=== PATIENT | female | born 1945 | race African-American/Black ===

== ENCOUNTER → 2023-12-16 09:07 | Outpatient (REF) | payer MEDICARE, BC, OTHER, SELFPAY ==
[2023-12-16 12:23] LABS: % Basophils 0.9 % (0-2); % Eosinophils 2.1 % (0-6); % Immature Granulocytes 0.2 % (0-0.5); % Lymphocytes 47.3 % (20.5-51.1); % Monocytes 9.4 % (1.7-9.3); % Neutrophils 40.1 % (42.2-75.2); Absolute Eosinophils 0.1 10^3/uL (0-0.7); Absolute Monocytes 0.4 10^3/uL (0.1-0.6); Absolute Neutrophils 1.7 10^3/uL (1.4-6.5); Hematocrit 32.7 % (37.0-47.0); Hemoglobin 10.4 g/dL (12.0-16.0); Mean Corp Hgb Conc. 31.8 g/dL (33.0-37.0); Mean Corpuscular Hgb 27.2 pg (27.0-31.0); Mean Corpuscular Volume 85.4 fL (81.0-99.0); Mean Platelet Volume 12.5 fL (7.4-10.4); Nucleated Red Blood Cells % 0 %; Platelet Count 130 10^3/uL (130-400); Red Blood Cell Count 3.83 10^6/uL (4.20-5.40); Red Cell Dist. Width 14.7 % (11.5-14.5); White Blood Cell Count 4.3 10^3/uL (4.8-10.8)
[2023-12-16 12:37] LABS: ALT (SGPT) 27 U/L (0-35); AST (SGOT) 31 U/L (14-36); Albumin 3.9 g/dl (3.5-5.0); Alkaline Phosphatase 58 U/L (38-126); Blood Urea Nitrogen 22 mg/dl (7-17); Calcium 9.4 mg/dl (8.4-10.2); Carbon Dioxide 28 mmol/L (22-30); Chloride 107 mmol/L (98-107); Glucose 130 mg/dl (70-99); HDL Cholesterol 97 mg/dl; LDL Cholesterol, Calculated 101 mg/dl; Potassium 3.4 mmol/L (3.5-5.1); Sodium 142 mmol/L (135-145); Total Bilirubin 0.6 mg/dl (0.2-1.3); Total Cholesterol 206 mg/dl (50-199); Total Protein 6.5 g/dl (6.3-8.2); Triglyceride 40 mg/dl (10-149); Very Low Density Lipoprotein 8 mg/dl (0-30); eGFR > 60.00
[2023-12-16 12:51] LABS: Microalbumin, Random Urine 1.5 mg/dl (0.6-1.7); Microalbumin/creatinine Ratio 8.4 mg/g
[2023-12-16 14:27] LABS: Glycohemoglobin (HgbA1c) 7.3 % (4.0-5.6)
== END ==
LOC: HWLAB 09:07
PROVIDERS: ATTENDING PHYSICIAN Family Medicine
DX: E11.65 Type 2 diabetes mellitus with hyperglycemia (principal); I10 Essential (primary) hypertension; E78.00 Pure hypercholesterolemia, unspecified; I69.959 Hemiplegia and hemiparesis following unspecified cerebrovascular disease affecting unspecified side; N28.9 Disorder of kidney and ureter, unspecified; D64.9 Anemia, unspecified; Z00.00 Encounter for general adult medical examination without abnormal findings
CPT/HCPCS: 36415; 80053; 80061; 82043; 82570; 83036; 85025

== ENCOUNTER → 2024-05-04 13:27 | Outpatient (REF) | payer MEDICARE, OTHER, BC, SELFPAY ==
[2024-05-04 16:14] LABS: % Basophils 0.9 % (0-2); % Eosinophils 4.1 % (0-6); % Immature Granulocytes 0.3 % (0-0.5); % Lymphocytes 43.2 % (20.5-51.1); % Monocytes 9.3 % (1.7-9.3); % Neutrophils 42.2 % (42.2-75.2); Absolute Eosinophils 0.1 10^3/uL (0-0.7); Absolute Lymphocytes 1.5 10^3/uL (1.2-3.4); Absolute Monocytes 0.3 10^3/uL (0.1-0.6); Absolute Neutrophils 1.5 10^3/uL (1.4-6.5); Hematocrit 41.2 % (37.0-47.0); Hemoglobin 13.4 g/dL (12.0-16.0); Mean Corp Hgb Conc. 32.5 g/dL (33.0-37.0); Mean Corpuscular Hgb 25.7 pg (27.0-31.0); Mean Corpuscular Volume 78.9 fL (81.0-99.0); Nucleated Red Blood Cells % 0 %; Platelet Count 121 10^3/uL (130-400); Red Blood Cell Count 5.22 10^6/uL (4.20-5.40); White Blood Cell Count 3.5 10^3/uL (4.8-10.8)
[2024-05-04 17:09] LABS: ALT (SGPT) 25 U/L (0-35); AST (SGOT) 28 U/L (14-36); Albumin 4.6 g/dl (3.5-5.0); Alkaline Phosphatase 70 U/L (38-126); Blood Urea Nitrogen 18 mg/dl (7-17); Carbon Dioxide 30 mmol/L (22-30); Chloride 98 mmol/L (98-107); Glucose 163 mg/dl (70-99); Iron 99 ug/dl (37-170); Potassium 3.7 mmol/L (3.5-5.1); Sodium 141 mmol/L (135-145); Total Bilirubin 0.6 mg/dl (0.2-1.3); Total Cholesterol 242 mg/dl (50-199); Total Protein 7.4 g/dl (6.3-8.2); Triglyceride 71 mg/dl (10-149); Very Low Density Lipoprotein 14 mg/dl (0-30); eGFR > 60.00
[2024-05-04 17:19] LABS: HDL Cholesterol 121 mg/dl; LDL Cholesterol, Calculated 107 mg/dl; Percent Saturation 38 % (20-50); Total Iron Binding Capacity 258 ug/dl (265-497)
[2024-05-04 17:22] LABS: Microalbumin, Random Urine 1.5 mg/dl (0.6-1.7); Microalbumin/creatinine Ratio 12.9 mg/g
[2024-05-05 12:31] LABS: Glycohemoglobin (HgbA1c) 9.2 % (4.0-5.6)
== END ==
LOC: HWLAB 13:27
PROVIDERS: ATTENDING PHYSICIAN Family Medicine
DX: E78.00 Pure hypercholesterolemia, unspecified (principal); E11.65 Type 2 diabetes mellitus with hyperglycemia; D64.9 Anemia, unspecified; R63.4 Abnormal weight loss
CPT/HCPCS: 36415; 80053; 80061; 82043; 82570; 82728; 83036; 83540; 83550; 85025

== ENCOUNTER → 2024-05-10 11:03 | Outpatient (REF) | payer MEDICARE, BC, SELFPAY | LOC: HWRAD 11:03 | PROVIDERS: ATTENDING PHYSICIAN Family Medicine | DX: R10.84 Generalized abdominal pain (principal); R63.4 Abnormal weight loss | CPT/HCPCS: 74177; Q9967 ==

== ENCOUNTER 2024-07-03 18:23 | Emergency (ER) | payer MEDICARE, BC, SELFPAY ==
[2024-07-03 18:26] VITALS: BP 144/68
[2024-07-03 22:09] VITALS: BP 153/71
--- NOTE | 2024-07-03 23:38 | ED.MUSCINJ ---
HPI-Injury
General
Chief Complaint: Fall
Source: patient and family
Exam Limitations: none
Time Seen by Provider: 07/03/24 19:38
Nursing documentation reviewed up to this point in time: agreed with
History of Present Illness-Injury
Is this injury a work related problem?: No
Is pt an associate of [facility]/[place]?: No
Initial Injury comments:
Patients sister states patient fell down approx 3 steps at home tonight. Unwitnessed, however sister heard the fall. No LOC. Patient complains of pain to her right thigh and right shoulder.
Past History
Past History
ED Past Medical History: CVA, HTN and Hypercholesterolemia; Negative NIDDM
Social History
Tobacco: Non-smoker
Living: with family
Family History
Family History: Negative Diabetes, Hypertension or CAD
Review of Systems
Review of Systems
Allergies reviewed?: Yes
All Other Systems: ROS reviewed and negative except as documented in HPI and ROS
Constitutional: Reports no symptoms
EENT: Reports no symptoms
Respiratory: Reports no symptoms
Cardiac: Reports no symptoms
ABD/GI: Reports no symptoms
Musculoskeletal: Reports joint pain (Pain to right thigh and right shoulder)
Skin: Reports no symptoms
Neurological: Reports no symptoms
Psychiatric: Reports no symptoms
Musculoskeletal Injury Exam
Musculoskeletal Injury Exam
Right Thigh:
Pain with Movement?: Moderate
Tender to palpation?: Moderate
Soft tissue swelling?: None
External deformity and angulation?: None
Joint effusion?: None
Contusion?: Moderate
Hematoma-local bleeding into tissue?: None
Strain- Sprain- Tear (Connective tissue injury)?: Moderate
Crepitus with movement?: No
Joint instability?: No
Malalignment/deformity?: No
Range of motion: Full
Distal skin color and temperature: normal-warm & good color
Capillary Refill: normal
Normal distal neurovascular exam?: Yes
Right Shoulder:
Pain with Movement?: Moderate
Tender to palpation?: Moderate
Soft tissue swelling?: None
External deformity and angulation?: None
Joint effusion?: None
Contusion?: Moderate
Hematoma-local bleeding into tissue?: None
Strain- Sprain- Tear (Connective tissue injury)?: None
Crepitus with movement?: No
Joint instability?: No
Malalignment/deformity?: No
Range of motion: Limited
Distal skin color and temperature: normal-warm & good color
Capillary Refill: normal
Normal distal neurovascular exam?: Yes
Phy Exam
General Physical Exam
General Presentation: well appearing and no apparent distress
General age: appears stated age
General Skin: warm and dry
General Habitus: normal
General Mental: alert
Neurological Exam
Neurological Exam: alert, oriented x3 and CN II-XII intact
Musculoskeletal Exam
Musculoskeletal Exam: neuro vasc intact
Skin Exam
Skin Exam: normal color, warm/dry and no rash
Psychiatric Exam
Psychiatric Exam: normal mood/affect
Injury Course
Orders/Labs/Results
Orders:
Orders
07/03/24 18:28
CT Cervical Spine W/o Iv Contr Urgent
Comment:
Reason For Exam: fall
CT Head W/o Iv Contrast Urgent
Comment:
Reason For Exam: fall
07/03/24 20:13
Femur, Right 2 View [CR Femur - Right Min 2 Vw] Urgent
Comment:
Reason For Exam: fall
Hip, Right 2-3 Views [CR Hip - RT w/wo Pel 2-3 Vw*] Urgent
Comment:
Reason For Exam: fall
Include a pelvis x-ray?: Yes
Shoulder, Right, Trauma [CR Shoulder, Trauma - Right] Urgent
Comment:
Reason For Exam: fall
*Radiology
Radiology exam reviewed: radiology read reviewed
*Pulse Oximetry
Patient hypoxic: no
*Critical Care Note
Total Time (30-74mins, 75-104mins- exclusive of procedures): Not Applicable
ED Attending Note
-
Portions of this chart may have been created with voice recognition software.� Occasional wrong word or��sound alike� substitutions may have occurred due to the inherent limitations of voice recognition software.
Discharge Plan
Departure
Patient Disposition: Home (Routine Discharge)
Date of Disposition: 07/03/24
Time of Disposition: 21:57
Patient with high blood pressure during this ER visit?: No
Condition: Good
Covid-19: Not Applicable
Discharge Problem:
Contusion of right shoulder, Contusion of left leg
Instructions: Contusion (DC), Preventing falls in adults, Using Cold for Pain
Prescriptions:
No Action
aspirin-dipyridamole 1 CAPSULE capsule, ER multiphase 12 hr
1 cap PO BID
carvedilol 6.25 MG tablet
12.5 mg PO BID
famotidine 10 MG tablet
20 mg PO BID
amlodipine 5 MG tablet
5 mg PO DAILY
atorvastatin 80 mg Tablet
80 mg PO DAILY
glipizide 5 mg Tablet Extended Release 24hr
5 mg PO DAILY
hydrochlorothiazide 25 mg Tablet
25 mg PO DAILY
Referrals:
Genet Laurent, DO [Family Provider] - Follow up in 2-3 days
Interventions
Interventions:
*Risk Screen - Suicide Last Done: 07/03/24 18:26
*General Assessment Last Done: 07/03/24 18:26
*Neglect/Abuse Screening Last Done: 07/03/24 18:26
ED- Fall Risk Assessment Last Done: 07/03/24 19:46
*Nursing Disposition Last Done: 07/03/24 22:11
ED-Musculoskeletal Assessment Last Done: 07/03/24 19:46
ED- Neurological Assessment Last Done: 07/03/24 19:46
ED-Skin Assessment Last Done: 07/03/24 19:46
Discharge Date and Time
Discharge Date/Time: 07/03/24 22:11
Print Language: KHMER
== END 2024-07-03 22:11 | disposition home or self-care (01) ==
LOC: EMR 18:23
PROVIDERS: EMERGENCY PHYSICIAN Student in an Organized Health Care Education/Training Program; FAMILY PHYSICIAN Family Medicine
DX: S80.12XA Contusion of left lower leg, initial encounter (principal); S40.011A Contusion of right shoulder, initial encounter; S09.90XA Unspecified injury of head, initial encounter; W10.9XXA Fall (on) (from) unspecified stairs and steps, initial encounter; I10 Essential (primary) hypertension; E78.00 Pure hypercholesterolemia, unspecified; I69.351 Hemiplegia and hemiparesis following cerebral infarction affecting right dominant side; I69.320 Aphasia following cerebral infarction; Z79.82 Long term (current) use of aspirin
CPT/HCPCS: 99284; 70450; 72125; 73030; 73502; 73552

== ENCOUNTER 2024-07-12 02:48 | Observation (INO) | payer MEDICARE, BC, SELFPAY ==
[2024-07-11 19:59] VITALS: BP 114/52
[2024-07-11 20:31] LABS: % Basophils 0.4 % (0-2); % Eosinophils 0.4 % (0-6); % Immature Granulocytes 0.4 % (0-0.5); % Lymphocytes 17.7 % (20.5-51.1); % Monocytes 10.7 % (1.7-9.3); % Neutrophils 70.4 % (42.2-75.2); Absolute Lymphocytes 0.9 10^3/uL (1.2-3.4); Absolute Monocytes 0.6 10^3/uL (0.1-0.6); Absolute Neutrophils 3.7 10^3/uL (1.4-6.5); Hematocrit 37.4 % (37.0-47.0); Hemoglobin 12.1 g/dL (12.0-16.0); Mean Corp Hgb Conc. 32.4 g/dL (33.0-37.0); Mean Corpuscular Hgb 26.8 pg (27.0-31.0); Mean Corpuscular Volume 82.9 fL (81.0-99.0); Mean Platelet Volume 11.3 fL (7.4-10.4); Nucleated Red Blood Cells % 0 %; Platelet Count 108 10^3/uL (130-400); Red Blood Cell Count 4.51 10^6/uL (4.20-5.40); Red Cell Dist. Width 16.4 % (11.5-14.5); White Blood Cell Count 5.3 10^3/uL (4.8-10.8)
[2024-07-11 20:38] LABS: ALT (SGPT) 31 U/L (0-35); AST (SGOT) 39 U/L (14-36); Albumin 4.4 g/dl (3.5-5.0); Alkaline Phosphatase 51 U/L (38-126); Blood Urea Nitrogen 18 mg/dl (7-17); Calcium 9.1 mg/dl (8.4-10.2); Carbon Dioxide 25 mmol/L (22-30); Chloride 100 mmol/L (98-107); Glucose 237 mg/dl (70-99); Potassium 4.2 mmol/L (3.5-5.1); Sodium 135 mmol/L (135-145); Total Bilirubin 0.6 mg/dl (0.2-1.3); Total Protein 7.2 g/dl (6.3-8.2); eGFR 45.76
[2024-07-11 22:53] VITALS: BP 113/63
[2024-07-11 22:55] VITALS: BMI 27.6
[2024-07-11 23:53] LABS: COVID-19 Antigen Positive (Negative)
[2024-07-12] VITALS (12 sets, daily range): BP systolic 105–162; BP diastolic 45–78; BMI 27.2
--- NOTE | 2024-07-12 00:08 | ED.GENMED ---
History of Present Illness
General
Chief Complaint: Weakness
Source: patient
Exam Limitations: none
Time Seen by Provider: 07/11/24 23:01
History of Present Illness
History of Present Illness:
79-year-old female presents for increasing weakness and discomfort to the right leg. She was here 9 days ago after a fall thought to have a contusion to the right leg typically she is ambulatory on her own however since the fall she has had
difficulty walking. She was unable to support her weight at all today. She lives with her family who accompanies her today. 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 She is a diabetic
Past History
Past History
ED Past Medical History: CVA, HTN and Hypercholesterolemia; Negative NIDDM
Social History
Tobacco: Non-smoker
Living: with family
Family History
Family History: Negative Diabetes, Hypertension or CAD
Phy Exam
Physical Exam
Physical Exam:
General: Well-appearing female no acute respiratory distress
HEENT: Normocephalic atraumatic
Heart: RRR, no murmurs
LUngs; CTA bilaterally
Ext: no cyanosis or edema
Skin: Warm, rash
Musculoskeletal exam: Increased pain response with internal/external rotation of the right hip. No deformity
Course
Orders/Labs/Results
Orders:
Orders
07/11/24 20:10
CMP [Comprehensive Metabolic Panel] Urgent
Complete Blood Count/With Diff Urgent
07/11/24 23:23
Urinalysis Reflex To Culture Urgent
CR Chest - 2 Views Urgent
Comment:
Reason For Exam: cough
07/11/24 23:41
COVID-19 Antigen Urgent
Source: Nasal Swab
Influenza A+B Rapid Molecular Urgent
ANTHONY Source: Nasal Swab
Specimen Description:
07/12/24 00:03
CT Pelvis W/o Iv Contrast Urgent
Reason For Exam: right hip pain, recent xrays
07/12/24 01:18
Acetaminophen [Tylenol] 650 mg PO NOW STA
Abnormal Lab Results
07/11/24 07/11/24
20:10 23:41
MCH 26.8 L pg
(27.0-31.0)
MCHC 32.4 L g/dL
(33.0-37.0)
RDW 16.4 H %
(11.5-14.5)
Plt Count 108 L 10^3/uL
(130-400)
MPV 11.3 H fL
(7.4-10.4)
Absolute Lymphs (auto) 0.9 L 10^3/uL
(1.2-3.4)
Lymphocytes % 17.7 L %
(20.5-51.1)
Monocytes % 10.7 H %
(1.7-9.3)
BUN 18 H mg/dl
(7-17)
Creatinine 1.2 H mg/dL
(0.6-1.0)
Glucose 237 H mg/dl
(70-99)
AST 39 H U/L
(14-36)
SARS-CoV-2 Antigen Positive A
(Negative)
07/11/24 20:10
07/11/24 20:10
Vital Signs
Initial and Last Documented VS:
Initial Vital Signs
Pulse Resp BP Pulse Ox
71 16 114/52 98
07/11/24 19:59 07/11/24 19:59 07/11/24 19:59 07/11/24 19:59
Last Documented Vital Signs
Pulse Resp BP Pulse Ox
71 16 113/63 96
07/11/24 19:59 07/11/24 19:59 07/11/24 22:53 07/12/24 00:30
MDM/Problems Addressed
Differential Diagnosis Includes:
Weakness increased pain to right leg. Had a fall 9 days ago x-rays of the right hip and pelvis and femur were negative. Family also notes onset of a cough recently. She is incontinent. Unable to walk due to her weakness. There is no respiratory
distress noted by family and there is no distress noted on my exam
Will check CT of pelvis to evaluate for possible occult fracture. Given the cough will test for COVID and flu and do a chest x-ray. Check labs.
*Critical Care Note
Total Time (30-74mins, 75-104mins- exclusive of procedures): Not Applicable
Update Note
Update Note:
Patient reevaluated. CT of pelvis negative. Patient tested positive for COVID. Chest x-ray clear not hypoxic. Patient has declined since last visit now unable to ambulate on her own normal with help of family. Here with generalized weakness
likely secondary to COVID infection in the setting of her recent fall. Not suitable for discharge home at this time.
ED Attending Note
-
Portions of this chart may have been created with voice recognition software.� Occasional wrong word or��sound alike� substitutions may have occurred due to the inherent limitations of voice recognition software.
Discharge Plan
Departure
Patient Disposition: Admit
Date of Disposition: 07/12/24
Time of Disposition: 01:21
Admit to: Telemetry
Presentation/result/management discussed w/ accepting MD/DO: Hospitalist
Discharge Problem:
Weakness, COVID-19
Prescriptions:
No Action
aspirin-dipyridamole 1 CAPSULE capsule, ER multiphase 12 hr
1 cap PO BID
carvedilol 6.25 MG tablet
12.5 mg PO BID
famotidine 10 MG tablet
20 mg PO BID
amlodipine 5 MG tablet
5 mg PO DAILY
atorvastatin 80 mg Tablet
80 mg PO DAILY
glipizide 5 mg Tablet Extended Release 24hr
5 mg PO DAILY
hydrochlorothiazide 25 mg Tablet
25 mg PO DAILY
Referrals:
Genet Laurent, DO [Family Provider] -
Interventions
Interventions:
*Risk Screen - Suicide Last Done: 07/11/24 22:55
*General Assessment Last Done: 07/11/24 19:59
*Neglect/Abuse Screening Last Done: 07/11/24 22:55
ED- Fall Risk Assessment Last Done: 07/11/24 22:55
*ED COVID-19 Vaccine History Last Done: 07/11/24 19:59
ED- Cardiac Assessment Last Done: 07/11/24 22:55
ED- Neurological Assessment Last Done: 07/11/24 22:55
ED- Pulmonary Assessment Last Done: 07/11/24 22:55
Discharge Date and Time
Print Language: ARABIC
[2024-07-12] MEDS: TYLENOL 650 MG PO ×3 (01:49→22:51)
--- NOTE | 2024-07-12 01:52 | HPS.HSE ---
Family Physician
-
Family Physician: Genet Laurent
Chief Complaint
-
Weakness
History of Present Illness
This is a-year-old with past medical history of CVA with residual right-sided hemiplegia and aphasia, khe-zcrhrri-ibrfanntu diabetes, hypertension, hyperlipidemia and recent falls who presents to the emergency department with weakness and discomfort
to the right leg.
Patient had a fall and was seen the emergency department 9 days ago and found to have a contusion to the right leg. She is was able to ambulate on her home however since the fall she has had difficulty walking. She also has chronic weakness on the
right leg. She reportedly had a cough yesterday that was nonproductive. She did not have any fevers or chills. Did not have any nausea or vomiting. Today she did have 1 episode of watery diarrhea. There was no melena or hematochezia. Denies
any medication changes. Family found her very weak getting up today. She was able to ambulate once she got up. Then she complained of pain radiating down from the right thigh.
In the emergency department she was afebrile, blood pressure was 113/63 with a pulse rate of 71. CBC was unremarkable. She had a CT of the hip which shows no evidence of fracture, there was chronic osteoarthritic changes. Electrolytes were
stable. Creatinine is slightly elevated at 1.2 from a baseline of around 0.8. Glucose was 237.
She has a positive COVID test
Medical History
Past Medical History
Past Medical History: Reports CVA, HTN and Hypercholesterolemia
Past Surgical History: Reports Other
Social History
Tobacco: Non-smoker
Alcohol: None
Drug: None
Living: With Family
Employment: Retired
Family History
Family History: Not pertinent
Allergies / Home Medications
Allergies reflects when Allergies were last updated in [facility].
Home Medications with original date entered in [facility]
Allergy/Medication List:
Allergies
Allergy/AdvReac Type Severity Reaction Status Date / Time
No Known Allergies Allergy Verified 07/11/24 20:06
Home Medications
amlodipine 5 mg tablet 5 mg PO DAILY 11/13/15
aspirin 25 mg-dipyridamole 200 mg capsule,ext.release 12 hr multiphase 1 cap PO BID 11/13/15
carvedilol 6.25 mg tablet 12.5 mg PO BID 11/13/15
famotidine 10 mg tablet 20 mg PO BID 11/13/15
atorvastatin 80 mg tablet 80 mg PO DAILY 12/26/22
glipizide 5 mg tablet, extended release 24 hr 5 mg PO DAILY 12/26/22
hydrochlorothiazide 25 mg tablet 25 mg PO DAILY 12/26/22
repaglinide 1mg tablet 1mg po with meals
Review of Systems
-
History Source: Patient and Family
Constitutional: Reports No Symptoms
EENT: Reports No Symptoms
Respiratory: Reports Cough
Cardiac: Reports No Symptoms
Abdomen/GI: Reports Diarrhea
: Reports No Symptoms
Musculoskeletal: Reports No Symptoms
Skin: Reports No Symptoms
Neurological: Reports Weakness
Endocrine: Reports No Symptoms
Hematologic/Lymphatic: Reports No Symptoms
Psych: Reports No Symptoms
Physical Exam
Vital Signs
Vital Signs
Pulse Resp BP Pulse Ox
71 16 113/63 96
07/11/24 19:59 07/11/24 19:59 07/11/24 22:53 07/12/24 00:30
Physical Exam
General: Well Developed, Well Nourished and No Apparent Distress
HEENT: NormoCephalic, Anicteric, Moist mucous membranes and Atraumatic
Respiratory: Clear
Cardiac: S1/S2 and Regular Rhythm
Breast: Deferred by me
GI: Soft, Non Tender, Non Distended and Normal Bowel Sounds
Rectal: Deferred by Provider
Genito-urinary: Deferred by me
Musculoskeletal: No Clubbing, No Cyanosis and No Edema
Skin: Warm
Neuro: AO x 3, Cranial Nerves Intact and Other (right upper ext spastic paresis. right lower extremity weakness. Both chronic)
Hematologic/Lymphatic: No Lymphadenopathy
Psych: Calm
Laboratory Results
-
07/11/24 20:10
07/11/24 20:10
Laboratory Results
Total Bilirubin 0.6 mg/dl (0.2-1.3) 07/11/24 20:10
AST 39 U/L (14-36) H 07/11/24 20:10
ALT 31 U/L (0-35) 07/11/24 20:10
Alkaline Phosphatase 51 U/L (38-126) 07/11/24 20:10
Data Reviewed
-
Diagnostic Radiology: Image Personally Visualized and interpreted
CT Scan: Report Reviewed by me
Lab Data: Labs Reviewed by me
Old Records: Reviewed
Impression/Plan
-
IMPRESSION:
79-year-old with tah-uzevtju-snevqmwmk diabetes, hypertension, hyperlipidemia and a prior CVA with residual right-sided hemiparesis who ambulates independently up until 9 days ago when she had a fall with a contusion on the right hip and now has
been having more difficulty ambulating over the last 2 to 3 days. They report that she was so weak that she could not get up by herself today but once she was up she was able to ambulate. She had a cough and a diarrhea and was positive for COVID
today. She is not hypoxic. She is hemodynamically stable but has slight rising creatinine. UA has not been obtained.
PLAN:
1. Weakness - Likely secondary to dehydration and possibly covid and exacerbating ambulatory difficulty from right hemiparesis and contusion. Pelvic CT negative for occult fracture
- admit to med/surg
- check u/a, tsh
- IV fluids
- pain control
- PT eval
2. COVID 19 - episode of diarrhea and cough. Well appearing. No hypoxia
- no specific tx indicated, monitor for now
3. DM II
- only on repaglinide 1mg tid w/ meals
- sliding scale insulin
4. CVA - stabl e
- continue aggrenox, statin
- continue carvedilol and amlodipine
DVT PPX - enoxaparin
Code status - full code
[2024-07-12] MEDS: NSS 1000 IV (05:17)
[2024-07-12 07:50] LABS: Urine Albumin Trace (Neg - Trace); Urine Bilirubin Negative (Negative); Urine Character Clear (Clear); Urine Color Yellow; Urine Glucose Negative (Negative); Urine Ketone Negative (Negative); Urine Leukocyte 2+ (Negative); Urine Nitrite Negative (Negative); Urine Occult Blood Negative (Negative); Urine Urobilinogen Negative (Neg - 1+)
[2024-07-12 07:56] LABS: Blood Urea Nitrogen 17 mg/dl (7-17); Calcium 8.6 mg/dl (8.4-10.2); Carbon Dioxide 25 mmol/L (22-30); Chloride 103 mmol/L (98-107); Creatine Phosphokinase 66 U/L (30-135); Estimated Creatinine Clearance 47 ml/min; Glucose 136 mg/dl (70-99); Potassium 3.2 mmol/L (3.5-5.1); Sodium 136 mmol/L (135-145); eGFR > 60.00
[2024-07-12 08:33] LABS: Urine Squamous Cell >30 /LPF (Few)
[2024-07-12 08:43] LABS: Urine Amorphous Seen
[2024-07-12 08:44] LABS: Urine Bacteria Few (Negative); Urine Red Blood Cell 0-2 /HPF (0-2); Urine White Cell 21-25 /HPF (0-5)
[2024-07-12 09:01] LABS: Glucose - Point of Care 130 mg/dl (70-99)
[2024-07-12] MEDS: PRANDIN 1 MG PO ×3 (09:28→18:22)
[2024-07-12] MEDS: COREG 12.5 MG PO ×2 (09:28→20:58)
[2024-07-12] MEDS: AGGRENOX 1 CAPSULE PO ×2 (09:28→20:56)
[2024-07-12] MEDS: NORVASC 5 MG PO (09:29)
[2024-07-12] MEDS: ORETIC 25 MG PO (09:29)
[2024-07-12] MEDS: PEPCID 20 MG PO ×2 (09:29→20:56)
[2024-07-12] MEDS: LIPITOR 80 MG PO (09:29)
[2024-07-12] MEDS: KCL 40 MEQ PO (09:34)
--- NOTE | 2024-07-12 10:31 | CM ---
Addendum entered by Sharonda Barajas RN 07/12/24 15:10:
GAYTAN Letter explained to daughter by phone- met with grand-daughter who signed GAYTAN.
Addendum entered by Sharonda Barajas RN 07/12/24 11:57:
Spoke with daughter Dora; she agrees with d/c plan to home with VN and possibly a caregiver. She will purchase a shower chair for the patient to use. Offered to order w/c however she declined saying this was her mother's only fall and normally
her ambulation is good.
Plan home with VN, possibly with caregiver, with family.
Original Note:
Patient with Hx stroke with residual right-sided hemiplegia and aphasia, recent falls. COVID +. Room air. Receiving IVF. PT Eval pending.
Spoke with patient's son in [facility];
the patient resides with her daughter Dora, LYLY THOMPSON, grandson and grand-daughter in a 2 story house with 2 KERRIE.
She was alert and non-verbal prior to admission.
DONNA says patient fell down the stairs several days ago and was seen in the ED.
She is mostly independent with ADLs and ambulates with her SPC.
The family assists with meals and administering her medications.
Daughter checks her blood sugar with a glucometer.
The son in law is retired, and will be going to [facility] soon for 4-5 months to stay in their home there.
The daughter works as a research clinical laboratory scientist for [employer] and works from home.
No housing/food/utility/transport insecurity.
DME - SPC, glucometer
No prior VN or SNF.
Grand-daughter was taking her to outpatient PT.
PCP - Genet Laurent
Pharmacy - [facility]
DONNA says that the family will want the patient to return home with VN, and will not allow SNF for rehab if needed, as that is not ok in their culture. He chooses [facility] ---> referral to [facility] Liaison.
Discussed hiring a caregiver while he is away and because daughter works during the day. Offered to provide Caregiver List---> sent to his email at [email or web address]. DONNA interested in Caregiver from [facility] if possible - suggested he
also consider private caregiver found through his social or community network.
Plan home with VN, possibly with caregiver, with family.
--- NOTE | 2024-07-12 12:22 | W.PN.UPDATE ---
Update Note
Progress Note Update
Seen by Dr. Wilhelm this am.
Patient with a history of stroke with residual right-sided weakness and aphasia presented with weakness. He she was recently here for fall and left-sided hip and thigh pain. Had a CT of the pelvis which did not show any evidence of fracture in hip
or pelvis.
Difficult exam but seems to be in pain and right hip as well as right thigh area. She had recent femur x-ray on 07/03 which did not show any evidence of fracture. In view of persistent pain and tenderness in the femur area we will get a CT of the
femur to rule out any occult fractures.
She was then noted to be positive for COVID-19 and had concern of dehydration. Creatinine was 1.2 which is improved to 0.8. She is without hypoxia or reactive lungs currently.
Obtain PT OT eval. Continue pain management for the right hip pain.
Treat COVID-19 symptomatically.
Patient has a positive urinalysis. Her granddaughter who lives with her is at bedside and the family has been noticing increased frequency of urine. Difficult historian because of aphasia. Will treat as presumed UTI. Start on ceftriaxone and
follow urine culture data. She normally wears diapers.
--- NOTE | 2024-07-12 12:22 | VNURNOTE ---
Home health liaison spoke with son in law Nannette to discuss [facility] services, visit scheduling/frequency, homebound status and pet policy. Nannette understands home visits will be 1-2 times a week to assess and teach medical management. Nannette aware a
visiting nurse will contact them for start of care within 1-2 days after discharge from . [facility] Referral completed in care port.
[2024-07-12] MEDS: STERILE WATER FOR INJECTION 10 ML IV (14:25)
[2024-07-12] MEDS: ROCEPHIN 1000 MG IV (14:25)
[2024-07-12 14:34] LABS: Glucose - Point of Care 137 mg/dl (70-99)
--- NOTE | 2024-07-12 17:28 | PTCARENOTE ---
Pt presents as assessed. Granddaughter at bedside. To and from CT via stretcher. No acute events throughout the day. Ringing appropriately, call brown within reach. See assessment and interventions.
--- NOTE | 2024-07-12 18:07 | PTCARENOTE ---
Pt transferred to [address] [id number].
[2024-07-12 18:09] LABS: Glucose - Point of Care 191 mg/dl (70-99)
[2024-07-13] MEDS: TYLENOL 650 MG PO (05:16)
[2024-07-13 07:40] VITALS: BP 134/64
[2024-07-13 08:48] LABS: Glucose - Point of Care 121 mg/dl (70-99)
[2024-07-13 09:17] LABS: Hemoglobin 11.9 g/dL (12.0-16.0); Mean Corp Hgb Conc. 32.2 g/dL (33.0-37.0); Mean Corpuscular Hgb 26.9 pg (27.0-31.0); Mean Corpuscular Volume 83.5 fL (81.0-99.0); Mean Platelet Volume 11.9 fL (7.4-10.4); Platelet Count 111 10^3/uL (130-400); Red Blood Cell Count 4.43 10^6/uL (4.20-5.40); Red Cell Dist. Width 16.5 % (11.5-14.5); White Blood Cell Count 3.5 10^3/uL (4.8-10.8)
[2024-07-13 09:34] LABS: Blood Urea Nitrogen 15 mg/dl (7-17); Carbon Dioxide 29 mmol/L (22-30); Chloride 103 mmol/L (98-107); Estimated Creatinine Clearance 47 ml/min; Glucose 145 mg/dl (70-99); Potassium 3.7 mmol/L (3.5-5.1); Sodium 137 mmol/L (135-145); eGFR > 60.00
[2024-07-13] MEDS: NORVASC 5 MG PO (09:46)
[2024-07-13] MEDS: COREG 12.5 MG PO (09:46)
[2024-07-13] MEDS: AGGRENOX 1 CAPSULE PO (09:46)
[2024-07-13] MEDS: LIPITOR 80 MG PO (09:47)
[2024-07-13] MEDS: PRANDIN 1 MG PO (09:47)
[2024-07-13] MEDS: PEPCID 20 MG PO (09:47)
[2024-07-13] MEDS: ORETIC 25 MG PO (09:48)
--- NOTE | 2024-07-13 12:25 | W.PN.HOSP.TC ---
Today's Communication/Plan
-
DC
Assessment / Plan
Assessment / Plan
Weakness - Likely secondary to dehydration and possibly covid and exacerbating ambulatory difficulty from right hemiparesis and contusion. Pelvic CT negative for occult fracture
-Much improved. Worked with the PT who recommends home therapy.
-Creatinine normalized.
-Tolerating oral diet. Hold further IV fluids.
-CT of the femur also shows no evidence of fracture or dislocation but does have signs of contusion of left iliopsoas muscle. Continue with the pain control but not requiring much pain medication. Continue with PT.
COVID 19 - episode of diarrhea and cough. Well appearing. No hypoxia
- no specific tx indicated, monitor for now
Fever-suspect secondary COVID-19. Patient urinalysis is abnormal but also there are too many squamous cells. Hard historian, hard to rule out UTI. Follow culture data but in meantime we will give 2 more days of oral antibiotics. Patient's family
advised to call our office tomorrow for culture report.
DM II
- only on repaglinide 1mg tid w/ meals
- sliding scale insulin
CVA - stable
- continue aggrenox, statin
- continue carvedilol and amlodipine
DVT PPX - enoxaparin
Code status - full code
Discussed with granddaughter at bedside.
Medically stable for discharge.
Anticipated Discharge: Today
Subjective/Interval History
-
Date of Service: July 13, 2024
Patient sitting in a chair. Looks comfortable. Nontoxic looking. No distress. Difficult communication because of aphasia.
Does not seems to be in distress from the right hip.
Difficult to know if she has any dysuria frequency of urine. Granddaughter at bedside and will try to communicate but hard to find answer.
Objective Data
-
Labs:
Laboratory Results
07/13/24
09:04
WBC 3.5 L
Hgb 11.9 L
Hct 37.0
Plt Count 111 L
Sodium 137
Potassium 3.7
Chloride 103
Carbon Dioxide 29
BUN 15
Creatinine 0.8
Glucose 145 H
Calcium 9.0
Vital Signs:
Vital Signs
Temp Pulse Resp BP Pulse Ox
98.6 F 78 16 134/64 99
07/13/24 07:40 07/13/24 07:40 07/13/24 07:40 07/13/24 07:40 07/13/24 07:40
I&O
07/12/24 07/13/24 07/14/24
06:59 06:59 06:59
Intake Total 480 / 480
Balance 480 / 480
Review of Systems
-
Unable to obtain full review of systems at this time due to: Other (aphasia)
Physical Exam
-
General: Comfortable
Respiratory: Clear to Auscultation and Non Labored Respirations; Negative Wheezes, Crackles or Accessory Resp Muscle Use
Cardiac: Regular Rhythm and S1/S2; Negative Tachycardic
GI: Soft
Neuro: Awake and Alert; Negative No Motor Deficits (rt hemiparesis)
Psych: Calm
Data Reviewed
-
Labs: Labs Reviewed by me
[2024-07-13 12:56] VITALS: BP 123/50
[2024-07-13] MEDS: PRANDIN PO (13:09)
== END 2024-07-13 13:21 | disposition home health service (06) ==
LOC: 2 NORTH 02:48
PROVIDERS: Emergency Medicine; Physician Assistant; ADMITTING PHYSICIAN Internal Medicine; ATTENDING PHYSICIAN Internal Medicine; EMERGENCY PHYSICIAN Student in an Organized Health Care Education/Training Program; FAMILY PHYSICIAN Family Medicine
DX: U07.1 COVID-19 (principal); R53.1 Weakness; R26.2 Difficulty in walking, not elsewhere classified; I69.320 Aphasia following cerebral infarction; I69.351 Hemiplegia and hemiparesis following cerebral infarction affecting right dominant side; E11.9 Type 2 diabetes mellitus without complications; E78.00 Pure hypercholesterolemia, unspecified; R32 Unspecified urinary incontinence; K57.30 Diverticulosis of large intestine without perforation or abscess without bleeding; M17.11 Unilateral primary osteoarthritis, right knee; M25.461 Effusion, right knee; K42.9 Umbilical hernia without obstruction or gangrene; M51.379 Other intervertebral disc degeneration, lumbosacral region without mention of lumbar back pain or lower extremity pain; I10 Essential (primary) hypertension; M25.551 Pain in right hip; R05.9 Cough, unspecified; R79.89 Other specified abnormal findings of blood chemistry; M79.651 Pain in right thigh; R19.7 Diarrhea, unspecified; S80.11XD Contusion of right lower leg, subsequent encounter; W19.XXXD Unspecified fall, subsequent encounter; Z79.84 Long term (current) use of oral hypoglycemic drugs; Z79.02 Long term (current) use of antithrombotics/antiplatelets
CPT/HCPCS: 71046; 72192; 73700; 80048; 80053; 81003; 81015; 82550; 82962; 83735; 85025; 85027; 87086; 87502; 87811; 97162; 99285; G0378

== ENCOUNTER → 2025-04-12 13:48 | Outpatient (REF) | payer MEDICARE, BC, SELFPAY ==
[2025-04-12 16:12] LABS: Hematocrit 35.4 % (37.0-47.0); Hemoglobin 11.4 g/dL (12.0-16.0); Mean Corp Hgb Conc. 32.2 g/dL (33.0-37.0); Mean Corpuscular Volume 84.5 fL (81.0-99.0); Platelet Count 109 10^3/uL (130-400); Red Cell Dist. Width 15.6 % (11.5-14.5)
[2025-04-12 16:21] LABS: ALT (SGPT) 21 U/L (0-35); AST (SGOT) 25 U/L (14-36); Albumin 4.4 g/dl (3.5-5.0); Alkaline Phosphatase 59 U/L (38-126); Blood Urea Nitrogen 25 mg/dl (7-17); Calcium 9.8 mg/dl (8.4-10.2); Carbon Dioxide 29 mmol/L (22-30); Chloride 105 mmol/L (98-107); Glucose 142 mg/dl (70-99); Potassium 3.8 mmol/L (3.5-5.1); Sodium 139 mmol/L (135-145); Total Protein 7.0 g/dl (6.3-8.2); Very Low Density Lipoprotein 8 mg/dl (0-30); eGFR 56.60
[2025-04-12 16:35] LABS: HDL Cholesterol 118 mg/dl; LDL Cholesterol, Calculated 81 mg/dl
[2025-04-13 11:28] LABS: Glycohemoglobin (HgbA1c) 8.5 % (4.0-5.6)
== END ==
LOC: HWLAB 13:48
PROVIDERS: ATTENDING PHYSICIAN Physician Assistant; FAMILY PHYSICIAN Family Medicine
DX: E11.65 Type 2 diabetes mellitus with hyperglycemia (principal)
CPT/HCPCS: 36415; 80053; 80061; 83036; 85027

== ENCOUNTER → 2025-06-08 13:17 | Outpatient (REF) | payer MEDICARE, BC, SELFPAY | LOC: HWRAD 13:17 | PROVIDERS: ATTENDING PHYSICIAN Obstetrics & Gynecology Gynecology; FAMILY PHYSICIAN Family Medicine | DX: M85.80 Other specified disorders of bone density and structure, unspecified site (principal); M85.89 Other specified disorders of bone density and structure, multiple sites | CPT/HCPCS: 77080 ==

== ENCOUNTER → 2025-06-22 08:37 | Outpatient (REF) | payer MEDICARE, OTHER, SELFPAY | LOC: WDC 08:37 | PROVIDERS: ATTENDING PHYSICIAN Obstetrics & Gynecology Gynecology; FAMILY PHYSICIAN Internal Medicine | DX: Z12.39 Encounter for other screening for malignant neoplasm of breast (principal); Z12.31 Encounter for screening mammogram for malignant neoplasm of breast | CPT/HCPCS: 77063; 77067 ==

== ENCOUNTER → 2025-07-19 15:36 | Outpatient (REF) | payer MEDICARE, OTHER, SELFPAY ==
[2025-07-19 16:17] LABS: Hematocrit 36.3 % (37.0-47.0); Hemoglobin 11.7 g/dL (12.0-16.0); Mean Corp Hgb Conc. 32.2 g/dL (33.0-37.0); Mean Corpuscular Volume 82.3 fL (81.0-99.0); Nucleated Red Blood Cells % 0 %; Platelet Count 120 10^3/uL (130-400); Red Cell Dist. Width 15.5 % (11.5-14.5)
[2025-07-19 16:33] LABS: ALT (SGPT) 26 U/L (0-35); AST (SGOT) 27 U/L (14-36); Albumin 4.1 g/dl (3.5-5.0); Alkaline Phosphatase 77 U/L (38-126); Blood Urea Nitrogen 16 mg/dl (7-17); Calcium 9.4 mg/dl (8.4-10.2); Carbon Dioxide 29 mmol/L (22-30); Chloride 105 mmol/L (98-107); Glucose 135 mg/dl (70-99); HDL Cholesterol 103 mg/dl; LDL Cholesterol, Calculated 95 mg/dl; Potassium 3.8 mmol/L (3.5-5.1); Sodium 138 mmol/L (135-145); Total Protein 7.1 g/dl (6.3-8.2); Very Low Density Lipoprotein 10 mg/dl (0-30); eGFR > 60.00
[2025-07-20 08:58] LABS: Glycohemoglobin (HgbA1c) 8.7 % (4.0-5.9)
== END ==
LOC: LAB 15:36
PROVIDERS: ATTENDING PHYSICIAN Physician Assistant; FAMILY PHYSICIAN Family Medicine
DX: E11.65 Type 2 diabetes mellitus with hyperglycemia (principal)
CPT/HCPCS: 36415; 80053; 80061; 83036; 85025